=== PATIENT | male | born 1965 | race African-American/Black ===

== ENCOUNTER → 2016-07-20 | Outpatient (CLI) | payer OTHER ==
[~2016-07-20] VITALS: Ht 185.4 cm; Wt 89.8 kg
[~2016-07-20] MED LIST: CLARITIN10 MG PO; FLONASE 0.05%50 MCG NASAL; HYDROCODONE-AP1 EAC6 PO; IBUPROFEN 800800 M1 PO; NABUMETONE 500500 M1 PO; NABUMETONE 750750 M1 PO; NASACORT10.8 ML NS; NORCO 5-325 TA1 EACH PO; PREDNISONE 20 M20 MG PO; SENOKOT-S1 TA1 PO; TRAMADOL 50 MG50 MG PO; VALIUM5 MG PO; ZYRTEC10 M4 PO
--- NOTE | ~2016-07-20 | HPC ---
[facility] [place] [address] PAIN MANAGEMENT CONSULTATION Name: DIGNA MOLINA Leo Room #: REG [facility] Seema#: [id number] Admission: 07/20/16 Attend Phys: Jermaine Sims DO Discharge: Date of : 61 Report #: [id number] THIS REPORT FOR: //name// CC: Hilario Sims HISTORY OF PRESENT ILLNESS: The patient is a very pleasant 51-year-old gentleman, seen in consultation at the request of Dr. Li for evaluation of pain, low back, right gluteus posterior lateral lower extremity with paresthesia in the lateral foot. The patient notes symptoms began in May, without specific antecedent trauma, though notes he had had some prior "trouble" with his left knee, and perhaps a small gait change. Nonetheless, the pain has become quite problematic. He has tried stretching, anti-inflammatory medications, massage, career guidance counselor, and oral steroids, all with transient improvement of symptoms. The patient notes pain got worse to the point that he actually presented to the ER, 3 weeks ago. He was treated conservatively and discharged. Currently, notes the pain is continuous, shooting, sharp, and stabbing, rates anywhere from 7-10 on a 0-10 visual analog scale. Notes, the pain is exacerbated with sitting, bending, and stretching, some relief with walking and stretching. He has some subjective weakness and paresthesia in the right leg. Fortunately, he denies bowel or bladder continence changes. No saddle anesthesia, though he does have some radicular pain into the right groin as well. REVIEW OF SYSTEMS: Complete review of systems was attached to the chart, and gone over with the patient. He is , seen in the company of his , who is supportive. He does not smoke or drink alcohol to excess. He has enjoyed remarkably good health. He has had prior right knee surgery, inguinal herniorrhaphy back in 1997, appendectomy in 2014. The patient works in [employer] in [employer]. He is a musician, he plays multiple instruments, typically percussion or base. Also, works as a personal care aid. He has continued to work despite pain. He is not receiving disability income. Pain impact score is 54/70. PHYSICAL EXAMINATION: Reveals a generally fit, 6 feet 1 inch, 198 pounds gentleman, BMI is 26 kilograms per meter squared. Blood pressure is 104/83, pulse 78, respirations 16. Cranial nerves 2-12 are grossly intact. Pupils are equal and reactive to light and accommodation. Extraocular muscles are intact. Cervical range of motion is full. Upper extremity strength is preserved. Heart is regular and rhythmical without murmur. Lungs are clear to auscultation. Abdomen is benign. Rises from the chair using armrest. Gait is nominally antalgic, favoring the right leg. Lumbar flexion is limited to 60 degrees. He is unable walk on his right toes. Right dorsiflexion is little bit better, he [address] [address] PAIN MANAGEMENT CONSULTATION Name: DIGNA MOLINA Room #: REG AYLA Stephenson#: [id number] Admission: 07/20/16 Attend Phys: Jermaine Sims DO Discharge: Date of : 61 Report #: [id number] can walk on his right heel. Objectively, he has grossly positive straight leg raise at 30 degrees on the right. Patellar reflex is 0-1/4 generally symmetric. Achilles reflexes absent on the right, 1/4 on the left. Diminution of right plantar flexion and lower extremity flexion strength. Skin integument is intact. DIAGNOSTIC STUDIES: There are no recent diagnostic studies available for evaluation at this time. ASSESSMENT: Symptomatic lumbar radiculopathy, right L5 radicular pattern in a gentleman, who has failed conservative therapy, including physical therapy, chiropractic manipulation, massage, nonsteroidal anti-inflammatory medications. Symptoms have been present for approaching 2 months. RECOMMENDATIONS: 1. We will continue nonsteroidal anti-inflammatory medications, I have taken the liberty of writing for nabumetone 750 mg b.i.d. 2. Fluoroscopic guided lumbar epidural injection today, right of midline at L5-S1. 3. Follow up in 3 weeks for reevaluation. If he does not have a dramatic improvement of baseline pain, we will need an MRI of the lumbar spine. Thank you for allowing me to participate in this patient's care. I will keep you abreast of his progress. PROCEDURE NOTE: Lumbar epidural injection under fluoroscopy. DESCRIPTION OF PROCEDURE: After both written and informed consent to include risk of spinal cord damage, increased pain, weakness and dural puncture, the patient was taken to the fluoroscopy suite, placed in the prone position. After sterile prep and drape, a skin wheal with lidocaine was raised. A 22-gauge epidural Tuohy needle was inserted in the midline at L5-S1 with good loss to resistance. Negative aspiration for cerebrospinal fluid or blood was noted. Then 1 mL of Omnipaque under biplanar fluoroscopy showed good spread within the epidural space. This was followed with 80 mg of triamcinolone plus 1 mL of 1.5% preservative-free Xylocaine, 0.5 mL Xylocaine was then injected to flush the needle; it was removed. The patient was monitored for an appropriate period of time and discharged in good and stable condition. <ELECTRONICALLY SIGNED> By: Jermaine Sims DO 07/24/16 0856 [id number] Jermaine Sims DO /nt
[2016-07-20 14:50] VITALS: BP 104/83
== END | disposition home or self-care (01) ==
LOC: PAIN 06:47
DX: M54.16 Radiculopathy, lumbar region (principal); Z98.890 Other specified postprocedural states

== ENCOUNTER → 2016-09-04 | Outpatient (CLI) | payer OTHER ==
[~2016-09-04] VITALS: Ht 185.4 cm; Wt 84.4 kg
--- NOTE | ~2016-09-04 | HPC ---
[facility] [address] [place] [address] PAIN MANAGEMENT CONSULTATION Name: DIGNA MOLINA Room #: REG [facility] Seema#: [id number] Admission: 09/04/16 Attend Phys: Jermaine Sims DO Discharge: Date of : 61 Report #: [id number] THIS REPORT FOR: //name// CC: Hilario Sims The patient is a very pleasant 51-year-old gentleman, prior seen in the pain clinic, diagnosed with symptomatic lumbar radiculopathy, given a lumbar epidural injection at that visit, 07/20/2016. Now 6 weeks later, the patient notes he has had greater than 90% relief of the pain; however, most concerningly he still has weakness that is fairly notable in the right gluteus and significant problems with plantar flexion on the right side. He still has tingling in the right lateral lower leg and right lateral and plantar aspect of the foot. PHYSICAL EXAMINATION: Shows a 51-year-old gentleman, BMI is 24.5 kg/m2. Vital signs stable as noted on the EMR. Moderately antalgic gait. No ability to walk on his right toes unfortunately. Right plantar flexion significantly diminished. Right lower extremity flexion diminished about 2-3/5. Right hip flexion about 3-4/5. Left leg is very strong at 4-5/5. Straight leg raise is positive on the right. Patellar reflex is modestly diminished on the right compared to the left. Achilles reflexes are generally preserved. DIAGNOSTIC STUDIES: There are no diagnostic studies available at this time. ASSESSMENT: Symptomatic lumbar radiculopathy with good incremental improvement of pain, but ongoing paresthesia and weakness in the right leg and what appears to be L4-L5 pattern. RECOMMENDATION: 1. MRI of the lumbar spine to rule out any surgically correctable pathology. 2. Follow up after MRI for further evaluation. May consider repeat epidural injection. Continue core strengthening exercises and lower extremity strengthening exercises. 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 He continues to take nabumetone 750 mg b.i.d. <ELECTRONICALLY SIGNED> By: Jermaine Sims DO 09/07/16 0853 [id number] Jermaine Sims DO /nt
[2016-09-04 13:16] VITALS: BP 124/75
== END | disposition home or self-care (01) ==
LOC: PAIN 08-17 06:55
DX: M54.16 Radiculopathy, lumbar region (principal)

== ENCOUNTER → 2016-09-22 | Outpatient (CLI) | payer OTHER | LOC: MRI 09-20 11:49 | DX: M54.16 Radiculopathy, lumbar region (principal) ==

== ENCOUNTER → 2016-10-06 | Outpatient (CLI) | payer OTHER ==
[~2016-10-06] VITALS: Ht 185.4 cm; Wt 88.0 kg
[~2016-10-06] MED LIST changes: +TYLENOL EXTRA500 MG PO
--- NOTE | ~2016-10-06 | HPC ---
[facility] [place] [address] PAIN MANAGEMENT CONSULTATION Name: DIGNA MOLINA Room #: REG [facility] Seema#: [id number] Admission: 10/06/16 Attend Phys: Jermaine Sims DO Discharge: Date of : 61 Report #: [id number] THIS REPORT FOR: //name// CC: Hilario Sims HISTORY OF PRESENT: The patient is a 51-year-old gentleman, prior seen in the pain clinic on 09/04/2016 with ongoing lumbar radicular pain. He had been given epidural injection on 07/20/2016, six weeks later still has ongoing relief up to 90%, but he was having increasing weakness in the right gluteus and problems with plantar flexion on the right side. Trouble "pushing off" with ambulation. I ordered an MRI of the lumbar spine, this was reviewed with the patient today, was obtained on 09/22 2016. L5-S1 notes moderate central to right paramedian disk extrusion with a small component extending along the proximal right S1 nerve root in the upper sacral region, small component that may also extend superior to the L5-S1 disk space in the right lateral space. PHYSICAL EXAMINATION: Again shows very pleasant 51-year-old gentleman, BMI is 25.6 kilograms per meter squared. Subjective pain is only 3/10, but does have ongoing weakness, tingling in that right leg. Rises from chair using armrest, modestly antalgic gait, difficulty with plantar flexion, cannot walk on his toes on the right side, slight decrease to right leg lower extremity flexion as well. ASSESSMENT AND PLAN: Symptomatic lumbar radiculopathy in a gentleman with ongoing weakness of right L5 pattern. I spent a good deal of time today, approximately 20 minutes, going over the MRI, plastic model spine, discussing the patient's specific anatomy. We have elected to trial 1 more epidural injection, I referred the patient to physical therapy for right leg strength exercise regimen. If the patient does not get adequate relief with this injection, i.e., some objective improvement in right leg functional status and strength, I will refer for consideration for a minimally invasive decompressive laminectomy at this L5-S1 site. ASSESSMENT: Symptomatic lumbar radiculopathy, component of neuropathic pain and some subjective weakness right L5 pattern. RECOMMENDATIONS: 1. Physical therapy. 2. LESI L5-S1. 3. Continue Relafen 750 b.i.d. 4. Follow up in 3 weeks for reevaluation. PROCEDURE: Lumbar epidural injection under fluoroscopy. PROCEDURE NOTE: After both written and informed consent to include risk of spinal cord damage, increased pain, weakness and dural puncture, [place] [address] PAIN MANAGEMENT CONSULTATION Name: DIGNA MOLINA Room #: REG [facility] Stephenson#: [id number] Admission: 10/06/16 Attend Phys: Jermaine Sims DO Discharge: Date of : 61 Report #: [id number] taken to the fluoroscopy suite, placed in the prone position. After sterile prep and drape, a skin wheal with lidocaine was raised. A 22-gauge epidural Tuohy needle was inserted in the midline at L5-S1 with good loss to resistance. Negative aspiration for cerebrospinal fluid or blood was noted. Then 1 mL of Omnipaque under biplanar fluoroscopy showed good spread within the epidural space. This was followed with 80 mg of triamcinolone plus 1 mL of 1.5% preservative-free Xylocaine, 0.5 mL Xylocaine was then injected to flush the needle; it was removed. The patient was monitored for an appropriate period of time and discharged in good and stable condition. <ELECTRONICALLY SIGNED> By: Jermaine iSms DO 10/12/16 [id number] [id number] Jermaine Sims DO /nt
[2016-10-06 14:18] VITALS: BP 129/99
== END | disposition home or self-care (01) ==
LOC: PAIN 13:47
DX: M54.16 Radiculopathy, lumbar region (principal); G62.9 Polyneuropathy, unspecified

== ENCOUNTER → 2016-11-09 | Outpatient (CLI) | payer OTHER ==
[~2016-11-09] VITALS: Ht 185.4 cm; Wt 85.2 kg
--- NOTE | ~2016-11-09 | HPC ---
[facility] [place] [address] PAIN MANAGEMENT CONSULTATION Name: DIGNA MOLINA Room #: REG AYLA Stephenson#: [id number] Admission: 11/09/16 Attend Phys: Jermaine Sims DO Discharge: Date of : 61 Report #: [id number] THIS REPORT FOR: //name// CC: Hilario Sims The patient is a pleasant 51-year-old gentleman being treated for symptomatic lumbar radiculopathy. He has had 2 lumbar epidural injections with overall improvement in baseline pain. He is actively working with physical therapy. He unfortunately still has some ongoing weakness in that right leg, difficulty "pushing off" with his right foot (plantar flexion). PHYSICAL EXAMINATION: Shows a 51-year-old gentleman, BMI is 24.8 kilograms per meter squared. Vital signs stable as noted on the EMR. Rises from chair using armrest. Nominally antalgic gait. Unable to walk on his right toes. Plantar flexion is diminished, but it does seem to be improving overall from my prior exam. We reviewed the MRI from 09/22/2016. L5-S1 does show moderate central to right paramedian disk extrusion with a small component extending along the proximal right S1 nerve root. RECOMMENDATIONS: Discussed with the patient today about therapeutic option. We have elected to proceed with epidural injection under fluoroscopy today at L5-S1 right of midline. For followup, the patient was given contact information for Dr. Francis Das at [facility] for consideration for decompressive laminectomy. ASSESSMENT: Symptomatic lumbar radiculopathy. PROCEDURE: Lumbar epidural injection under fluoroscopy. PROCEDURE NOTE: After both written and informed consent to include risk of spinal cord damage, increased pain, weakness and dural puncture, the patient was taken to the fluoroscopy suite, placed in the prone position. After sterile prep and drape, a skin wheal with lidocaine was raised. A 22-gauge epidural Tuohy needle was inserted in the midline at L5-S1 with good loss to resistance. Negative aspiration for cerebrospinal fluid or blood was noted. Then 1 mL of Omnipaque under biplanar fluoroscopy showed good spread within the epidural space. This was followed with 80 mg of triamcinolone plus 1 mL of 1.5% preservative-free Xylocaine, 0.5 mL Xylocaine was then injected to flush the needle; it was removed. The patient was monitored for an appropriate period of time and discharged in good and stable condition. <ELECTRONICALLY SIGNED> By: Jermaine Sims DO 11/10/16 0657 [id number] 17 Jermaine Sims DO /nt
[2016-11-09 10:00] VITALS: BP 113/72
== END | disposition home or self-care (01) ==
LOC: PAIN 11-03 14:35
DX: M54.16 Radiculopathy, lumbar region (principal); Z98.890 Other specified postprocedural states

== ENCOUNTER → 2019-01-20 | Outpatient (CLI) | payer OTHER | LOC: ULTRA 14:23 | DX: N43.3 Hydrocele, unspecified (principal) ==